=== PATIENT | female | born 1955 | race Caucasian/White ===

== ENCOUNTER 2017-09-09 10:01 | Outpatient (CLI) | payer MEDICARE, BC | END 2017-09-09 10:02 | disposition home or self-care (01) | LOC: SC 10:01 | PROVIDERS: ATTEND Internal Medicine Pulmonary Disease | DX: G47.33 Obstructive sleep apnea (adult) (pediatric) (principal) | CPT/HCPCS: 99203; G0463; 99212 ==

== ENCOUNTER 2017-10-05 19:47 | Outpatient (CLI) | END 2017-10-05 19:48 | disposition home or self-care (01) ==

== ENCOUNTER 2017-12-16 14:16 | Outpatient (CLI) | payer MEDICARE | END 2017-12-16 14:17 | disposition home or self-care (01) | LOC: SC 14:16 | PROVIDERS: ATTEND Nurse Practitioner Family | DX: G47.33 Obstructive sleep apnea (adult) (pediatric) (principal) | CPT/HCPCS: 99214; G0463; 99212 ==

== ENCOUNTER 2019-08-10 08:00 | Outpatient (CLI) | payer MEDICARE, BC | END 2019-08-10 23:59 | disposition home or self-care (01) | LOC: COV 08:00 | PROVIDERS: ATTEND Family Medicine | DX: R05 Cough (principal); R50.9 Fever, unspecified | CPT/HCPCS: 81599 ==